=== PATIENT | male | born 1940 | race Caucasian/White ===

== ENCOUNTER 2017-02-03 23:29 | Emergency (ER) | payer MEDICARE, BC ==
[~2017-02-03] VITALS: Ht 177.8 cm; Wt 119.0 kg
--- NOTE | 2017-02-03 23:41 | NUR ---
BREATHING TREATMENT GIVEN. IT WAS EXPLAINT HOW TO BREATH DEEPLY FOR GOOD DEPOSITION TO THE LUNGS.
[2017-02-03] MEDS ORDERED: LEVOTHYROXIN75 MC1 PO (23:44)
[2017-02-03] MEDS ORDERED: METFORMIN500 M2 PO (23:44)
[2017-02-03] MEDS ORDERED: ULTRAM50 M1 PO (23:45)
[2017-02-03] MEDS ORDERED: PREDNISONE5 MG PO (23:45)
[2017-02-03] MEDS ORDERED: MIRALAX3350 NF PO (23:46)
[2017-02-03] MEDS ORDERED: VITAMIN B-12500 MCG PO (23:46)
[2017-02-04 00:09] LABS: HEMATOCRIT 24.9 % (39.0-50.0); HEMOGLOBIN 7.9 g/dl (14.0-18.0); IMMATURE GRANULOCYTES 0.7 % (0.0-1.0); MEAN CELL VOLUME 108.7 fL CALC (80.0-100.0); MEAN CORPUSCULAR HGB 34.5 pG CALC (26.0-32.0); MEAN CORPUSCULAR HGB CONC 31.7 g/L CALC (32.0-36.0); PLATELET COUNT 75 thou/uL (130-400); RED BLOOD COUNT 2.29 mill/uL (4.70-6.10); RED CELL DISTRI WIDTH 18.7 % (11.5-15.5)
[2017-02-04 00:28] LABS: INTERNATIONAL NORMALIZED RATIO 1.1 RATIO (0.7-1.3); PROTHROMBIN TIME 11.7 SECONDS (9.0-12.5)
[2017-02-04 00:33] LABS: BAND 1 % (0-8); MANUAL DIFFERENTIAL YES
[2017-02-04 00:35] LABS: ANISOCYTOSIS RARE; HYPOCHROMIA FEW; IMMATURE CELLS 23 %; OVALOCYTES FEW; SCHISTOCYTES FEW; STOMATOCYTE MARKED
[2017-02-04 00:45] LABS: ALBUMIN 3.9 g/dL (3.2-5.0); ALKALINE PHOSPHATASE 104 u/l (38-126); ANION GAP 17 (6-22 (CALC)); BILIRUBIN, TOTAL 0.7 mg/dL (0.0-1.4); BUN 21 mg/dL (8-23); BUN/CREATININE RATIO 22 (12-20 (CALC)); CALCIUM 9.5 mg/dL (8.4-10.2); CARBON DIOXIDE 23 mmol/l (22-30); CHLORIDE 102 mmol/l (95-108); GFR > 60 ML/MIN (>=60 (CALC)); GFR FOR AFR.AMER. > 60 ML/MIN (>=60 (CALC)); GLUCOSE 232 mg/dL (82-115); POTASSIUM 4.6 mmol/l (3.5-5.1); SGOT/AST 35 u/l (19-48); SGPT/ALT 32 u/l (11-66); SODIUM 137 mmol/l (137-146); TOTAL PROTEIN 7.6 g/dL (6.3-8.2)
[2017-02-04 00:57] LABS: MYOGLOBIN 60 ng/mL (0 - 121)
[2017-02-04 02:19] VITALS: BP 114/64
== END 2017-02-04 02:19 ==
LOC: ED 23:29
PROVIDERS: Emergency Medicine
DX: J18.9 Pneumonia, unspecified organism (principal); D64.9 Anemia, unspecified; C95.10 Chronic leukemia of unspecified cell type not having achieved remission; R06.02 Shortness of breath; R94.31 Abnormal electrocardiogram [ECG] [EKG]; R50.9 Fever, unspecified; R05 Cough